=== PATIENT | female | born 1955 | race Caucasian/White ===

== ENCOUNTER 2023-04-11 07:29 | Inpatient (IN) | payer MEDICARE ==
[2023-04-08 12:27] VITALS: BMI 30.4
[2023-04-11 08:50] LABS: #Basophils 0.1 thou/uL (0.0-0.2); #Eosinphils 0.2 thou/uL (0.0-0.7); #Monocytes 0.7 thou/uL (0.11-0.59); #Neutrophils 3.3 thou/uL (1.40-6.50); %Basophils 0.7 % (0.0-1.0); %Eosinophils 2.3 % (0.0-10.0); %Lymphocytes 40.3 % (21.0-51.0); %Monocytes 9.3 % (0.0-10.0); %Neutrophils 47.1 % (42.0-75.0); Hematocrit 39.6 % (36.0-47.0); Hemoglobin 13.6 g/dL (12.0-16.0); Mean Corpuscular HGB CONC 34.3 g/dL (32.0-36.0); Mean Corpuscular Hemoglobin 32.1 pg (27.0-31.0); Mean Corpuscular Volume 93.4 fl (78.0-98.0); Mean Platelet Volume 10.5 fL (7.4-10.4); Platelet Count 275 10x3/uL (130-400); Red Blood Cell (RBC) Count 4.24 mill/uL (4.20-5.40); White Blood Cell (WBC) Count 7.1 10x3/uL (4.8-10.8)
[2023-04-11] MEDS ORDERED: PROPOFOL 20 ML ONE (08:51)
[2023-04-11] MEDS ORDERED: SUGAMMADEX SODIUM 200 MG/2 ML VIAL ONE (08:51)
[2023-04-11] MEDS ORDERED: fentaNYL PF 100 MCG/2 ML SYRINGE ONE (08:51)
[2023-04-11] MEDS ORDERED: Rocuronium Bromide 10 MG/ML (10ML VIAL) ONE ×2 (08:52→10:21)
[2023-04-11] MEDS ORDERED: Ondansetron PF 4 MG/2 ML Vial ONE ×2 (08:52→10:21)
[2023-04-11] MEDS ORDERED: Lidocaine 1% PF 5 ML VIAL ONE ×2 (08:52→10:21)
[2023-04-11] MEDS ORDERED: Dexamethasone 4 mg/ml Vial ONE (08:52)
[2023-04-11] MEDS ORDERED: PHENYLEPHRINE-NS 100 MCG/ML 10 ML SYRINGE ONE ×3 (08:59→10:53)
[2023-04-11 09:14] LABS: Anion Gap 14 mmol/L (10-20); BUN (Urea Nitrogen) 15 mg/dL (9.8-20.1); Calc. Creatinine Clearance 67 mL/min (70-130); Calcium 9.5 mg/dL (7.8-10.44); Carbon Dioxide 28 mmol/L (23-31); Chloride 101 mmol/L (98-107); Estimated GFR 62; Glucose 112 mg/dL (80-115); Potassium 3.4 mmol/L (3.5-5.1); Sodium 140 mmol/L (136-145)
[2023-04-11] MEDS ORDERED: HYDROmorphone 0.5 MG/0.5 ML SYRINGE ONE (09:33)
[2023-04-11] MEDS ORDERED: Clindamycin/D5W 900 mg/50 ml Premix Bag ONE (10:08)
[2023-04-11] MEDS ORDERED: LevoFLOXacin 500 mg/D5W 100 ML BAG ONE (10:08)
[2023-04-11] MEDS ORDERED: Dexamethasone 20 MG/5 ML VIAL ONE (10:21)
[2023-04-11] MEDS ORDERED: PROPOFOL 200 MG/20 ML VIAL ONE (10:21)
[2023-04-11] MEDS ORDERED: ePHEDrine Sulfate 50 MG/10 ML VIAL ONE ×2 (10:21→10:54)
[2023-04-11] MEDS ORDERED: Promethazine HCl 25 MG/ML VIAL IM PRN (11:00)
[2023-04-11] MEDS ORDERED: Ondansetron HCl/PF 4 MG/2 ML Vial IVP PRN (11:00)
[2023-04-11] MEDS ORDERED: HYDROmorphone 2 MG/ML VIAL SLOW IVP PRN (11:00)
[2023-04-11] MEDS ORDERED: Mag-Al 1200 mg/1200 mg/30 ML UDCUP PO PRN (11:37)
[2023-04-11] MEDS ORDERED: Acetaminophen/Codeine 30-300mg Tablet PO PRN ×2 (11:37)
[2023-04-11] MEDS ORDERED: traMADol HCl 50 MG TAB PO PRN (11:37)
[2023-04-11] MEDS ORDERED: Milk Of Magnesia 30 ML UDCUP PO PRN (11:37)
[2023-04-11] MEDS ORDERED: Promethazine 25 MG TAB PO PRN ×2 (11:37→15:36)
[2023-04-11] MEDS ORDERED: Acetaminophen 325 MG TAB PO PRN (11:37)
[2023-04-11] MEDS ORDERED: Morphine 2 MG/ML VIAL SLOW IVP PRN (11:37)
[2023-04-11] MEDS ORDERED: Ondansetron PF 4 MG/2 ML Vial IVP PRN (11:37)
[2023-04-11] MEDS ORDERED: Benzocaine/Menthol 1 LOZ LOZ PO PRN (11:38)
[2023-04-11] MEDS ORDERED: Phenol 177 ML BOT PO PRN (11:38)
[2023-04-11] MEDS ORDERED: traZODone HCl 50 MG TAB PO PRN (11:39)
[2023-04-11] MEDS ORDERED: Fentanyl 250 MCG/5 ML VIAL ONE (11:56)
[2023-04-11] MEDS: Sodium Chloride 0.9% 1,000 ML IV SCH (14:00)
[2023-04-11] MEDS ORDERED: Promethazine HCl 25 MG in Sodium Chloride 0.9% 50 ML IVPB PRN (15:22)
[2023-04-11] MEDS ORDERED: Scopolamine 1 mg/72 hour Patch TD SCH (16:00)
[2023-04-11] MEDS: Methocarbamol 500 MG TAB PO SCH ×2 (17:28→21:34)
[2023-04-11] MEDS: Clindamycin/D5W 900 MG in Premix 1 BAG IVPB SCH (17:46)
[2023-04-12] MEDS: Clindamycin/D5W 900 MG in Premix 1 BAG IVPB SCH (02:33)
[2023-04-12] MEDS: Sodium Chloride 0.9% 1,000 ML IV SCH (02:34)
[2023-04-12] MEDS ORDERED: Levothyroxine Sodium 50 MCG TAB PO SCH (06:00)
[2023-04-12 07:45] VITALS: BP 135/71; TEMP 98
[2023-04-12] MEDS ORDERED: Hydrochlorothiazide 25 MG TAB PO SCH (09:00)
== END 2023-04-12 11:00 | disposition home or self-care (01) | DRG 472 ==
LOC: EDBD → SURG A 07:29
PROVIDERS: ADMIT Neurological Surgery; ATTEND Neurological Surgery
PROC: 0RT30ZZ Resection of Cervical Vertebral Disc, Open Approach (ICD-10-PCS; principal; 2023-04-11)
PROC: 0RG20A0 Fusion of 2 or more Cervical Vertebral Joints with Interbody Fusion Device, Anterior Approach, Anterior Column, Open Approach (ICD-10-PCS; 2023-04-11)
PROC: 3E033XZ Introduction of Vasopressor into Peripheral Vein, Percutaneous Approach (ICD-10-PCS; 2023-04-11)
DX: M48.02 Spinal stenosis, cervical region (principal); M47.12 Other spondylosis with myelopathy, cervical region; I10 Essential (primary) hypertension; G43.909 Migraine, unspecified, not intractable, without status migrainosus; Z88.1 Allergy status to other antibiotic agents; Z91.048 Other nonmedicinal substance allergy status
CPT/HCPCS: 80048; 85025; 93005; 93010; C1713; J1100; J1170; J1956; J2405; J2704; J3010; J3490; J7050; Q0169